=== PATIENT | female | born 1995 | race African-American/Black ===

== ENCOUNTER 2017-06-21 07:06 | Emergency (ER) | payer MEDICAID ==
[~2017-06-21] VITALS: Ht 165.1 cm; Wt 52.0 kg
[2017-06-21] MEDS ORDERED: SODIUM CHLORIDE 0.9% 1,000 ML IV ONE (09:47)
[2017-06-21] MEDS ORDERED: KETOROLAC 30MG/ML VIAL IV STA (09:47)
[2017-06-21] MEDS ORDERED: ONDANSETRON HCL 4MG/2ML VIAL IV STA (09:47)
[2017-06-21 10:08] LABS: BASOPHILS % 0.4 % (0.0-2.0); EOSINOPHILS % 0.1 % (0.0-5.0); HEMATOCRIT. 42.7 % (36.0-48.0); MEAN CORPUSCULAR HEMOGLOBIN 31.1 pg (28.0-32.0); MEAN CORPUSCULAR VOLUME 94.6 fL (81.0-99.0); MEAN PLATELET VOLUME 9.5 fl (7.4-10.4); MONOCYTES % 10.8 % (2.0-8.0); NEUTROPHILS % 79.7 % (40.0-76.0); PLATELET 238 x1000/uL (130-400); RED BLOOD CELL COUNT 4.52 mill/uL (4.2-5.4); RED CELL DISTRIBUTION WIDTH 13.4 % (11.6-14.6)
[2017-06-21 10:13] LABS: CHLORIDE 105 mEq/L (98-107)
[2017-06-21 10:22] LABS: CARBON DIOXIDE 28 mEq/L (21-32)
[2017-06-21 10:54] LABS: CLARITY URINE CLEAR (CLEAR); COLOR URINE YELLOW (YELLOW); KETONES URINE 1+ (NEGATIVE); LEUKOCYTE ESTERASE URINE NEGATIVE (NEGATIVE); NITRITE URINE NEGATIVE (NEGATIVE); OCCULT BLOOD URINE NEGATIVE (NEGATIVE); PROTEIN URINE TRACE (NEGATIVE); SPECIFIC GRAVITY URINE 1.034 (1.005-1.030)
[2017-06-21] MEDS ORDERED: IOHEXOL-300 100 ML BOTTLE ONE (12:46)
[2017-06-21 13:32] VITALS: BP 123/80
== END 2017-06-21 13:44 | disposition home or self-care (01) ==
LOC: ER 07:17
DX: R10.84 Generalized abdominal pain (principal)
CPT/HCPCS: 36415; 74177; 80053; 81001; 83690; 85025; 96361; 96374; 96375; 99285; J1885; J2405; J7030; Q9967; Z7610